=== PATIENT | female | born 1940 | race Caucasian/White ===

== ENCOUNTER 2019-05-03 17:47 | Outpatient (CLI) | END 2019-05-03 18:01 | disposition short-term general hospital (02) | LOC: AMBL 17:47 | PROVIDERS: ATTEND Internal Medicine | DX: R51 Headache (principal); R55 Syncope and collapse; R53.1 Weakness; R26.9 Unspecified abnormalities of gait and mobility; M62.422 Contracture of muscle, left upper arm; R47.9 Unspecified speech disturbances ==